=== PATIENT | male | born 1985 | race Caucasian/White ===

== ENCOUNTER 2020-06-10 02:48 | Emergency (ER) | payer OTHER ==
[2020-06-10 04:09] LABS: BASOPHIL 0.9 % (0-2); EOSINOPHIL 2.2 % (0-5); HCT 46.8 % (42.0-52.0); HGB 16.5 g/dl (13.2-18.0); MCH 31.7 pg (25.0-31.0); MCHC 35.3 g/dL (32.0-36.0); MONOCYTE 8.8 % (0-12); MPV 9.6 fL (6.0-9.5); NEUTROPHIL 57.7 % (41-80); NRBC 0; PLT 202 K/uL (150-400); RDW 12.7 % (11.5-14.0); WBC 6.8 K/uL (4.0-10.5)
[2020-06-10 04:13] LABS: INR 1.06 (0.9-1.2); PROTHROMBIN TIME 13.1 SECONDS (11.4-13.6)
[2020-06-10 04:21] LABS: ALBUMIN 4.1 g/dL (3.4-5.0); BILIRUBIN - TOTAL 0.4 mg/dL (0.2-1.0); BUN/CREAT RATIO (CALC) 11.5 RATIO; CREATININE 1.04 mg/dL (0.67-1.17); GLOBULIN (CALCULATION) 3.4 g/dL; POTASSIUM 3.7 mmol/L (3.5-5.1); TOTAL PROTEIN 7.5 g/dL (6.4-8.2)
[2020-06-10] MEDS ORDERED: PEPCID AC20 MG PO (05:21)
== END 2020-06-10 05:35 | disposition home or self-care (01) ==
LOC: FER 02:48
PROVIDERS: Emergency Medicine
DX: K29.71 Gastritis, unspecified, with bleeding (principal)
CPT/HCPCS: 36415; 80053; 83690; 85025; 85610; 99284

== ENCOUNTER 2020-11-05 19:24 | Emergency (ER) | payer OTHER ==
[~2020-11-05 19:24] MED LIST: PEPCID AC20 MG PO
[2020-11-05 20:17] LABS: BILIRUBIN NEGATIVE (NEGATIVE); BLOOD 3+ Ery/uL (NEGATIVE); CLARITY CLEAR (CLEAR); COLOR YELLOW (YELLOW); GLUCOSE (U) NORMAL (NORMAL); LEUKOCYTES NEGATIVE Leu/uL (NEGATIVE); NITRITE NEGATIVE (NEGATIVE); PROTEIN 1+ mg/dL (NEGATIVE); SPECIFIC GRAVITY >=1.030 (1.001-1.030); pH 5.5 (5.0-9.0)
[2020-11-05 20:23] LABS: BASOPHIL 0.7 % (0-2); EOSINOPHIL 1.7 % (0-5); HCT 42.4 % (42.0-52.0); HGB 15.1 g/dl (13.2-18.0); LYMPHOCYTE 32.5 % (15-48); MCH 31.4 pg (25.0-31.0); MCHC 35.6 g/dL (32.0-36.0); MCV 88.1 fL (78.0-100.0); MONOCYTE 6.6 % (0-12); MPV 8.9 fL (6.0-9.5); NEUTROPHIL 58.3 % (41-80); NRBC 0; PLT 210 K/uL (150-400); RBC 4.81 M/uL (4.70-6.00); RDW 12.4 % (11.5-14.0); WBC 10.5 K/uL (4.0-10.5)
[2020-11-05 20:31] LABS: BACTERIA 2+; URINARY RBC TNTC
[2020-11-05 20:32] LABS: CALCIUM OXALATE CRYSTALS TRACE; MUCOUS MODERATE
[2020-11-05 20:34] LABS: YEAST PRESENT
[2020-11-05 20:38] LABS: BUN/CREAT RATIO (CALC) 18.4 RATIO; CREATININE 0.87 mg/dL (0.67-1.17); POTASSIUM 3.4 mmol/L (3.5-5.1)
== END 2020-11-05 22:23 | disposition home or self-care (01) ==
LOC: FER 19:24
PROVIDERS: Nurse Practitioner Family
DX: N20.0 Calculus of kidney (principal); Z79.899 Other long term (current) drug therapy
CPT/HCPCS: 36415; 80048; 81001; 85025

== ENCOUNTER 2021-04-16 09:09 | Emergency (ER) | payer OTHER | END 2021-04-16 10:32 | disposition home or self-care (01) | LOC: FER 09:09 | DX: H71.91 Unspecified cholesteatoma, right ear (principal); F17.210 Nicotine dependence, cigarettes, uncomplicated | CPT/HCPCS: 99283 ==